=== PATIENT | male | born 1975 | race Caucasian/White ===

== ENCOUNTER 2023-05-22 13:56 | Emergency (ER) | payer OTHER, SELFPAY ==
[2023-05-22] VITALS (7 sets, daily range): BP systolic 126–176; BP diastolic 84–126; BMI 32.1
--- NOTE | 2023-05-22 14:49 | ED.GENMED ---
History of Present Illness
General
Chief Complaint: Heart Rate Problem
Source: patient
Exam Limitations: none
Time Seen by Provider: 05/22/23 14:49
Nursing documentation reviewed up to this point in time: agreed with
Travel History
Have you had any contact with someone who has COVID-19?: No
Do you have any symptoms of coronavirus? Fever > 100 degrees, chills, cough, shortness of breath, sore throat, loss of taste or smell, muscle aches, or headache?: No
History of Present Illness
History of Present Illness:
47-year-old male with history of GERD on famotidine, presents stating he was awakened at 2 AM with a 'stitch' in the left lower lateral rib area. No further episodes since then. At the time however his pulse on his Apple Watch was between 75-105
for an hour. He fell back asleep. He woke again at 6 AM and his left fingertips felt numb, he checked his blood pressure and his systolic was 160/ so he rested for 5 minutes took it again and it was 178/
For past 2 weeks he developed intermittent sharp stabbing electric-like pain in the left sternocostal area lasting a few to 10 minutes. No recollection of overuse or injury. He does work out 5 times a week but this is not unusual for him.
He had a mild cough for the past 3 weeks that subsided 4 days ago.
He had 1 episode of watery diarrhea this morning.
He denies shortness of breath. Denies abdominal pain, N/V. He feels 'fine' now but during this initial evaluation he did have a fleeting episode of the left electric-like chest pain
Past History
Past History
ED Past Medical History: Negative Asthma, CHF, COPD, CVA, HTN, Hypercholesterolemia, NIDDM or PA
ED Past Surgical History: Appendectomy and Other (Hernia repair)
Social History
Tobacco: Non-smoker
Alcohol: Occasional
Drug: None
Personal:
Living: with family
Employment: Employed
Family History
Family History: Hypertension and CAD (Father had an PA at age 55, he eventually had quadruple bypass. He at age 72.); Negative Early CAD
Review of Systems
Review of Systems
Allergies reviewed?: Yes
All Other Systems: ROS reviewed and negative except as documented in HPI and ROS
Constitutional: Denies fever or fatigue
Respiratory: Denies trouble breathing
Cardiac: Reports chest pain; Denies diaphoresis, palpitations or syncope
ABD/GI: Reports diarrhea (1 episode this morning); Denies abdominal pain, nausea, vomiting or anorexia
: Reports no symptoms
Musculoskeletal: Reports no symptoms
Skin: Reports no symptoms
Neurological: Reports no symptoms
Phy Exam
Physical Exam
Physical Exam:
GENERAL: No acute distress. A&Ox3.
CONSTITUTIONAL: Afebrile.
EYES: Clear, conjunctivae normal
ENMT: moist mucus membranes, Pharynx nl
RESPIRATORY: Regular respirations, nonlabored, lungs clear.
CARDIOVASCULAR: Regular rate and rhythm, no murmurs, no rubs.
GI: Soft, nontender, normal BS
MUSCULOSKELETAL: Unable to reproduce chest wall pain with palpation. Moves with ease. Well perfused.
SKIN: Warm, dry, pink
PSYCH: Normal mood and affect. Well kept, interactive and appropriate
NEUROLOGIC: Awake, alert and oriented. No focal neurological deficits
Course
Orders/Labs/Results
Orders:
Orders
05/22/23 14:01
EKG [Electrocardiogram (*1)] Urgent
Reason for Study: Chest Pain
EKG- Treatment ONCE
05/22/23 14:45
D-Dimer Urgent
05/22/23 14:46
CMP [Comprehensive Metabolic Panel] Urgent
Complete Blood Count/With Diff Urgent
Troponin I Urgent
05/22/23 15:17
CR Chest - 2 Views Urgent
Comment:
Reason For Exam: left chest pain
Abnormal Lab Results
05/22/23
14:46
MCH 31.8 H pg
(27.0-31.0)
Abs Immat Gran (auto) 0.1 H 10^3/uL
(0-0.05)
Absolute Monos (auto) 0.7 H 10^3/uL
(0.1-0.6)
Immature Gran % 0.6 H %
(0-0.5)
Total Bilirubin 1.4 H mg/dl
(0.2-1.3)
05/22/23 14:46
05/22/23 14:46
Vital Signs
Initial and Last Documented VS:
Initial Vital Signs
Temp Pulse Resp BP Pulse Ox
98.3 F 106 16 176/126 98
05/22/23 13:59 05/22/23 13:59 05/22/23 13:59 05/22/23 13:59 05/22/23 13:59
Last Documented Vital Signs
Temp Pulse Resp BP Pulse Ox
98.4 F 80 16 139/90 97
05/22/23 17:50 05/22/23 17:50 05/22/23 17:50 05/22/23 17:50 05/22/23 17:50
MDM/Problems Addressed
Differential Diagnosis Includes:
Pleuritis, costochondritis, GERD
MDM/Problems Addressed:
47-year-old male with history of GERD on famotidine, presents stating he was awakened at 2 AM with a 'stitch' in the left lower lateral rib area. No further episodes since then. At the time however his pulse on his Apple Watch was between 75-105
for an hour. He fell back asleep. He woke again at 6 AM and his left fingertips felt numb, he checked his blood pressure and his systolic was 160/ so he rested for 5 minutes took it again and it was 178/
For past 2 weeks he developed intermittent sharp stabbing electric-like pain in the left sternocostal area lasting a few to 10 minutes. No recollection of overuse or injury. He does work out 5 times a week but this is not unusual for him.
He had a mild cough for the past 3 weeks that subsided 4 days ago.
He had 1 episode of watery diarrhea this morning.
He denies shortness of breath. Denies abdominal pain, N/V. He feels 'fine' now but during this initial evaluation he did have a fleeting episode of the left electric-like chest pain
Afebrile
EKG: Sinus tach rate 101
05/22/2023 1541 PM
CBC normal
CMP normal
Troponin normal
Persistent tachycardia HR on bedside monitor 111, most likely from anxiety as pt extremely anxious about getting IV started after 2 failed attempts
Will check D dimer
05/22/2023 1724 PM
D-dimer normal
Chest x-ray NAD
Reassured. Referred to cardiology given his family history
HR 80 NSR, BP 139/90
Stable for discharge
*Critical Care Note
Total Time (30-74mins, 75-104mins- exclusive of procedures): Not Applicable
ED Attending Note
-
Portions of this chart may have been created with voice recognition software.� Occasional wrong word or��sound alike� substitutions may have occurred due to the inherent limitations of voice recognition software.
Discharge Plan
Departure
Patient Disposition: Home (Routine Discharge)
Date of Disposition: 05/22/23
Time of Disposition: 17:26
Patient with high blood pressure during this ER visit?: Yes
Condition: Good
Discharge Problem:
Atypical chest pain, Anxiety about health, History of palpitations
Instructions: Palpitations (DC), BLOOD PRESSURE
Prescriptions:
No Action
No Current Medications
hydrocodone-acetaminophen 5 MG/500 MG tablet
1 tab PO Q6HPRN PRN (Reason: PAIN) Qty: 12 0RF
ibuprofen 600 MG tablet
600 mg PO Q6H Qty: 30 0RF
Referrals:
Karlene Duran MD [Active] - Next open appointment
Rome Shields MD [Family Provider] - Call in 1-3 days for appt
Activity Restrictions/Additional Instructions:
As discussed, your workup here today shows nothing worrisome.
Your last blood pressure was 139/90. Take your blood pressure at the same time at home every day under calm circumstances and write it down to discuss with your doctor at your next visit.
I have given you the name of a black topper to follow-up with to get a complete cardiac workup.
Interventions
Interventions:
*Risk Screen - Suicide Last Done: 05/22/23 13:59
*General Assessment Last Done: 05/22/23 13:59
*Neglect/Abuse Screening Last Done: 05/22/23 13:59
ED- Fall Risk Assessment Last Done: 05/22/23 14:30
*ED COVID-19 Vaccine History Last Done: 05/22/23 14:30
*Nursing Disposition Last Done: 05/22/23 17:50
ED- Cardiac Assessment Last Done: 05/22/23 14:30
ED- Pulmonary Assessment Last Done: 05/22/23 14:30
Discharge Date and Time
Discharge Date/Time: 05/22/23 17:52
[2023-05-22 15:12] LABS: % Basophils 0.5 % (0-2); % Eosinophils 0.6 % (0-6); % Immature Granulocytes 0.6 % (0-0.5); % Lymphocytes 25.7 % (20.5-51.1); % Monocytes 7.7 % (1.7-9.3); % Neutrophils 64.9 % (42.2-75.2); Absolute Eosinophils 0.1 10^3/uL (0-0.7); Absolute Immature Granulocytes 0.1 10^3/uL (0-0.05); Absolute Lymphocytes 2.3 10^3/uL (1.2-3.4); Absolute Monocytes 0.7 10^3/uL (0.1-0.6); Absolute Neutrophils 5.7 10^3/uL (1.4-6.5); Hematocrit 44.9 % (39.0-52.0); Hemoglobin 16.6 g/dL (13.0-18.0); Mean Corpuscular Hgb 31.8 pg (27.0-31.0); Nucleated Red Blood Cells % 0 % (-); Platelet Count 194 10^3/uL (130-400); Red Blood Cell Count 5.22 10^6/uL (4.70-6.10); Red Cell Dist. Width 12.7 % (11.5-14.5); White Blood Cell Count 8.8 10^3/uL (4.8-10.8)
[2023-05-22 15:38] LABS: ALT (SGPT) 49 U/L (0-50); AST (SGOT) 38 U/L (17-59); Albumin 4.5 g/dl (3.5-5.0); Alkaline Phosphatase 109 U/L (38-126); Blood Urea Nitrogen 15 mg/dl (9-20); Carbon Dioxide 25 mmol/L (22-30); Chloride 105 mmol/L (98-107); Estimated Creatinine Clearance > 125 ml/min; Glucose 93 mg/dl (70-99); Potassium 4.3 mmol/L (3.5-5.1); Sodium 136 mmol/L (135-145); Total Bilirubin 1.4 mg/dl (0.2-1.3); Total Protein 7.2 g/dl (6.3-8.2); Troponin I < 0.012 ng/ml; eGFR > 60.00
[2023-05-22 16:48] LABS: D-Dimer < 0.27 ug/mlFEU (0.00-0.50)
--- NOTE | 2023-05-22 17:45 | EDRN ---
Discharge instructions given to patient by UZIEL Muller. Patient verbalized understanding. Ambulated with steady gait to the lobby.
== END 2023-05-22 17:52 | disposition home or self-care (01) ==
LOC: EMR 13:56
PROVIDERS: Emergency Medicine; Registered Nurse; EMERGENCY PHYSICIAN Emergency Medicine; FAMILY PHYSICIAN Internal Medicine
DX: R07.89 Other chest pain (principal); F41.9 Anxiety disorder, unspecified; R00.2 Palpitations; W19.XXXA Unspecified fall, initial encounter; Z82.49 Family history of ischemic heart disease and other diseases of the circulatory system; Z86.73 Personal history of transient ischemic attack (TIA), and cerebral infarction without residual deficits
CPT/HCPCS: 99283; 71046; 80053; 84484; 85025; 85379; 93005

== ENCOUNTER → 2023-05-28 07:20 | Outpatient (REF) | payer OTHER, SELFPAY | LOC: RCS 07:20 | PROVIDERS: ATTENDING PHYSICIAN Internal Medicine Cardiovascular Disease; FAMILY PHYSICIAN Internal Medicine | DX: R00.0 Tachycardia, unspecified (principal); R03.0 Elevated blood-pressure reading, without diagnosis of hypertension | CPT/HCPCS: 93017 ==

== ENCOUNTER → 2023-06-04 07:18 | Outpatient (REF) | payer OTHER, SELFPAY | LOC: DHCBC HW 07:18 | PROVIDERS: ATTENDING PHYSICIAN Internal Medicine Cardiovascular Disease; FAMILY PHYSICIAN Internal Medicine | DX: R00.0 Tachycardia, unspecified (principal); R03.0 Elevated blood-pressure reading, without diagnosis of hypertension | CPT/HCPCS: 93306 ==

== ENCOUNTER → 2023-07-12 06:22 | Day surgery (SDC) | payer OTHER, SELFPAY | LOC: GI 06:22 | PROVIDERS: ATTENDING PHYSICIAN Internal Medicine Gastroenterology | DX: Z12.11 Encounter for screening for malignant neoplasm of colon (principal); K57.30 Diverticulosis of large intestine without perforation or abscess without bleeding; K64.8 Other hemorrhoids; K29.70 Gastritis, unspecified, without bleeding; K29.80 Duodenitis without bleeding; K20.90 Esophagitis, unspecified without bleeding; K26.9 Duodenal ulcer, unspecified as acute or chronic, without hemorrhage or perforation; K22.89 Other specified disease of esophagus; K44.9 Diaphragmatic hernia without obstruction or gangrene; K30 Functional dyspepsia; R10.13 Epigastric pain | CPT/HCPCS: 45380; 43239; 88305; 88342 ==

== ENCOUNTER → 2023-09-25 07:52 | Outpatient (REF) | payer OTHER, SELFPAY | LOC: HWRAD 07:52 | PROVIDERS: ATTENDING PHYSICIAN Internal Medicine Gastroenterology; FAMILY PHYSICIAN Internal Medicine | DX: R10.13 Epigastric pain (principal) | CPT/HCPCS: 76700 ==

== ENCOUNTER → 2023-10-02 06:27 | Day surgery (SDC) | payer OTHER, SELFPAY | LOC: GI 06:27 | PROVIDERS: ATTENDING PHYSICIAN Internal Medicine Gastroenterology | DX: K29.80 Duodenitis without bleeding (principal); K22.89 Other specified disease of esophagus; Z87.11 Personal history of peptic ulcer disease | CPT/HCPCS: 43239; 88305 ==

== ENCOUNTER → 2024-05-16 11:32 | Outpatient (REF) | payer OTHER, SELFPAY | LOC: HWRAD 11:32 | PROVIDERS: ATTENDING PHYSICIAN Hospitalist | DX: M25.511 Pain in right shoulder (principal); G89.29 Other chronic pain | CPT/HCPCS: 73030 ==

== ENCOUNTER → 2025-02-13 15:20 | Outpatient (REF) | payer OTHER, SELFPAY | LOC: MRI 3T 15:20 | PROVIDERS: ATTENDING PHYSICIAN Hospitalist | DX: D33.3 Benign neoplasm of cranial nerves (principal) | CPT/HCPCS: 70553; A9575 ==